=== PATIENT | female | born 2000 ===

== ENCOUNTER 2022-11-24 10:25 | Emergency (ER) | payer BC, OTHER ==
--- OUTSIDE RECORDS SUMMARY | 2022-11-24 10:30 | XMS REPORT | Continuity of Care Document ---
:2000 Author Organization [facility] t Address [address] [facility] [address] [place] [address] Care Team Providers Name Role Phone PCP, PATIENT DOES NOT HAVE A Primary Care Physician Unavaila SHANTI Nguyen Attending Clinician Unavailable Windy Jama MD Attending Clinician Unknown, Attending Attending Clinician Unavailable WINDY JAMA Attending Clinician Unavailable Provider, Ang [facility] Attending Clinician Unavailable AKHIL KITCHEN K.H. Attending Clinician Unavailable Akhil Kitchen MD K.H. Attending Clinician Doctor Unassigned, [place] Attending Clinician Unavailable Shanti Galeana MD Attending Clinician ERIS MONROE Attending Clinician Unavailable Only, Ang Mohinder Test Attending Clinician Unavailable Eris Monroe MD Attending Clinician Patricia Gonsalves MD Attending Clinician Sylvia Germain MD Attending Clinician Therapy, Adc Covid Infusion Attending Clinician Unavailable Toby Portillo MD Attending Clinician TAVON ALVAREZ Attending Clinician Unavailable Silvana Berg Attending Clinician SILVANA FITZGERALD Attending Clinician Unavailable Lab, Ang - Db Attending Clinician Unavailable SYLVIA GERMAIN Attending Clinician Unavailable PATRICIA GONSALVES Attending Clinician Unavailable ISIAH MONTEMAYOR Attending Clinician Unavailable VITOR PURCELL Attending Clinician Unavailable Payers Payer Name Policy Type Policy Number Effective Date Expiration Date S yolanda [employer] [place] [id number] 2021 00:00:00 [facility] [id number] 2018 CHOICE 00:00:00 Problems Condition Condition Condition Status Onset Resolution Last Treating Co mments Source Name Details Category Date Date Treatment Clinician Date Body mass Body mass Disease Active Uni vers index index 5-06 ity of (BMI) of (BMI) of 00:00: [place] 20 to 24 20 to 24 00 Medica l Branch Thyroiditi Thyroiditi Disease Active U nivers s s 5-06 ity of 00:00: Medical [place] Right axis Right axis Disease Active U nivers deviation deviation 8-17 ity of on EKG on EKG 00:00: [facility] Abnormal Abnormal Disease Active Unive rs uterine uterine 3-08 ity of bleeding bleeding 00:00: [place] [facility] Thyroid Thyroid Disease Active 2019-04 Univers antibody antibody 1-11 ity of positive positive 00:00: [place] [facility] Chronic Chronic Disease Active Univers sinusitis, sinusitis, 7-15 it y of [place]specif[place] Me dical Branch Positive Positive Disease Active Unive rs ANGEL ANGEL 3-18 ity of (antinucle [place]inucle [place] Medical antibody) antibody) Bran ch Gilbert's Gilbert's Disease Active Uni vers syndrome syndrome 3-08 ity of 00:00: [place] [facility] Allergies, Adverse Reactions, Alerts Allergy Allergy Status Severity Reaction(s) Onset Inactive Treating Comm ents Source Name Type Date Date Clinician NO KNOWN Drug Active Univers ALLERGIE Class ity of S [facility] Social History Social Habit Start Date Stop Date Quantity Comments Source Exposure to 2022-04-14 2022-04-24 Not sure University of SARS-CoV-2 00:00:00 14:32:00 [facility] (event) [place] Tobacco use and 2022-04-24 2022-04-24 Smokeless tobacco Un iversity of exposure 00:00:00 00:00:00 non-user [facility] Alcohol intake 2022-04-24 2022-04-24 Current University of 00:00:00 00:00:00 non-drinker of [facility] alcohol (finding) Branch Sex Assigned At [birth year] Universit y of 00:00:00 00:00:00 [facility] Smoking Status Start Date Stop Date Source Never smoked tobacco [facility] Medications Ordered Filled Start Stop Current Ordering Indication Dosage Frequency Signature Comments Components Source Medication Medication Date Date Medication? Clinician (SIG) Name Name loratadine 2021-04 Yes Univers (CLARITIN 2-27 ity of ORAL) 14:34: [address] loratadine 2021-04 Yes Univers (CLARITIN 2-27 ity of ORAL) 14:34: [address] maalox/diph 2021-04 Yes [id number] 5mL Take 5 mL Univers enhydrAMINE 2-27 by mouth 3 it y of :lidocaine2 00:00: (three) [place] % viscous 00 times Medical 1:1:1 Susp daily as Branc h suspension needed (gargle and spit). maalox/diph 2021-04 Yes [id number] 5mL Take 5 mL Univers enhydrAMINE 2-27 by mouth 3 it y of :lidocaine2 00:00: (three) [place] % viscous 00 times Medical 1:1:1 Susp daily as Branc h suspension needed (gargle and spit). QULIPTA 30 2021-04 Yes Univers mg Tab 2-09 ity of 00:00: [address] QULIPTA 30 2021-04 Yes Univers mg Tab 2-09 ity of 00:00: [address] loratadine Yes Univers (CLARITIN 7-25 ity of ORAL) 14:16: [address] loratadine Yes Univers (CLARITIN 7-25 ity of ORAL) 14:16: [address] norethindro Yes [id number] 1{tbl} Take 1 Univers ne-ethinyl 6-07 tablet by ity of estradiol 00:00: mouth [place] (HAMMAD 00 every Medical 05/18, ,) morning. Branc h 1-20 mg-mcg per tablet norethindro Yes [id number] 1{tbl} Take 1 Univers ne-ethinyl 6-07 tablet by ity of estradiol 00:00: mouth [place] (HAMMAD 00 every Medical ,) morning. Branc h 1-20 mg-mcg per tablet norethindro 2022-0 Yes [id number] 1{tbl} Take 1 Univers ne-ethinyl 6-07 tablet by ity of estradiol 00:00: mouth [place] (HAMMAD 00 every Medical ,) morning. Branc h 1-20 mg-mcg per tablet norethindro 2022-0 Yes [id number] 1{tbl} Take 1 Univers ne-ethinyl 6-07 tablet by ity of estradiol 00:00: mouth [place] (HAMMAD 00 every Medical ,) morning. Branc h 1-20 mg-mcg per tablet loratadine 2020-0 Yes [id number] 10mg Take 1 U nivers 10 mg 3-19 tablet by ity of tablet 00:00: mouth [place] 00 daily. Medical Branch fluticasone 2020-0 Yes [id number] 2{spray Use 2 Univers propionate 3-19 } Sprays in ity of 50 00:00: each [place] mcg/actuati 00 nostril Medic al on nasal daily. Branch spray loratadine 2020-0 Yes [id number] 10mg Take 1 U nivers 10 mg 3-19 tablet by ity of tablet 00:00: mouth [place] 00 daily. Medical Branch fluticasone 2020-0 Yes [id number] 2{spray Use 2 Univers propionate 3-19 } Sprays in ity of 50 00:00: each [place] mcg/actuati 00 nostril Medic al on nasal daily. Branch spray loratadine 2020-0 Yes [id number] 10mg Take 1 U nivers 10 mg 3-19 tablet by ity of tablet 00:00: mouth [place] 00 daily. Medical [place] fluticasone 2020-0 Yes [id number] 2{spray Use 2 Univers propionate 3-19 } Sprays in ity of 50 00:00: each [place] mcg/actuati 00 nostril Medic al on nasal daily. Branch spray loratadine 2020-0 Yes [id number] 10mg Take 1 U nivers 10 mg 3-19 tablet by ity of tablet 00:00: mouth [place] 00 daily. [facility] fluticasone 2020-0 Yes [id number] 2{spray Use 2 Univers propionate 3-19 } Sprays in ity of 50 00:00: each [facility]/actuati 00 nostril Medic al on nasal daily. Branch spray Immunizations Ordered Immunization Filled Immunization Date Status Commen ts Source Name Name Influenza Virus 2021-02-02 Completed Universit y of Vaccine 00:00:00 [facility] Influenza Virus 2021-02-02 Completed Universit y of Vaccine 00:00:00 [facility] Influenza Virus 2021-02-02 Completed Universit y of Vaccine 00:00:00 [facility] Influenza Virus 2021-02-02 Completed Universit y of Vaccine 00:00:00 [facility] Influenza Virus 2020-03-01 Completed Universit y of Vaccine Quad .5 mL IM 00:00:00 [place] Medical 6+ MO Branch Influenza Virus 2020-03-01 Completed Universit y of Vaccine Quad .5 mL IM 00:00:00 [place] Medical 6+ MO Branch Influenza Virus 2020-03-01 Completed Universit y of Vaccine [place] .5 mL IM 00:00:00 [place] Medical 6+ MO Branch Influenza Virus 2020-03-01 Completed Universit y of Vaccine [place] .5 mL IM 00:00:00 [place] Medical 6+ MO Branch Influenza Virus 2019-06-09 Completed Universit y of Vaccine [place] .5 mL IM 00:00:00 [place] Medical 6+ MO Branch Influenza Virus 2019-06-09 Completed Universit y of Vaccine 00:00:00 [facility] Influenza Virus 2019-06-09 Completed Universit y of Vaccine Quad .5 mL IM 00:00:00 [place] Medical 6+ MO Branch Influenza Virus 2019-06-09 Completed Universit y of Vaccine 00:00:00 [facility] Influenza Virus 2019-06-09 Completed Universit y of Vaccine Quad .5 mL IM 00:00:00 [place] Medical 6+ MO Branch Influenza Virus 2019-06-09 Completed Universit y of Vaccine 00:00:00 [facility] Influenza Virus 2019-06-09 Completed Universit y of Vaccine Quad .5 mL IM 00:00:00 [place] Medical 6+ MO Branch Influenza Virus 2019-06-09 Completed Universit y of Vaccine 00:00:00 [facility] HPV9 2018-06-30 Completed University of 00:00:00 [facility] HPV9 2018-06-30 Completed University of 00:00:00 [facility] HPV9 2018-06-30 Completed University of 00:00:00 [facility] HPV9 2018-06-30 Completed University of 00:00:00 [facility] TDAP 2018-03-24 Completed University of 00:00:00 [facility] TDAP 2018-03-24 Completed University of 00:00:00 [facility] TDAP 2018-03-24 Completed University of 00:00:00 [facility] TDAP 2018-03-24 Completed University of 00:00:00 [facility] Influenza Virus 2018-01-20 Completed Universit y of Vaccine 00:00:00 [facility] Influenza Virus 2018-01-20 Completed Universit y of Vaccine 00:00:00 [facility] Influenza Virus 2018-01-20 Completed Universit y of Vaccine 00:00:00 [facility] Influenza Virus 2018-01-20 Completed Universit y of Vaccine 00:00:00 [facility] Influenza Virus 2018-01-19 Completed Universit y of Vaccine 00:00:00 [facility] Influenza Virus 2018-01-19 Completed Universit y of Vaccine 00:00:00 [facility] Influenza Virus 2018-01-19 Completed Universit y of Vaccine 00:00:00 [facility] Influenza Virus 2018-01-19 Completed Universit y of Vaccine 00:00:00 [facility] Meningococcal 2015-11-25 Completed University of Polysaccharide 00:00:00 [place] Medi vanessa (groups A, C, Y and Branc h W-135) conjugate vaccine (MCV4P) Meningococcal 2015-11-25 Completed University of Polysaccharide 00:00:00 [place] Medi vanessa (groups A, C, Y and Branc h W-135) conjugate vaccine (MCV4P) Meningococcal 2015-11-25 Completed University of Polysaccharide 00:00:00 [place] Medi vanessa (groups A, C, Y and Branc h W-135) conjugate vaccine (MCV4P) Meningococcal 2015-11-25 Completed University of Polysaccharide 00:00:00 [place] Medi vanessa (groups A, C, Y and Branc h W-135) conjugate vaccine (MCV4P) Meningococcal 2011-12-18 Completed University of Polysaccharide 00:00:00 [place] Medi vanessa (groups A, C, Y and Branc h W-135) conjugate vaccine (MCV4P) TDAP 2011-12-18 Completed University of 00:00:00 [facility] Meningococcal 2011-12-18 Completed University of Polysaccharide 00:00:00 [place] Medi vanessa (groups A, C, Y and Branc h W-135) conjugate vaccine (MCV4P) TDAP 2011-12-18 Completed University of 00:00:00 [facility] Meningococcal 2011-12-18 Completed University of Polysaccharide 00:00:00 [place] Medi vanessa (groups A, C, Y and Branc h W-135) conjugate vaccine (MCV4P) TDAP 2011-12-18 Completed University of 00:00:00 [facility] Meningococcal 2011-12-18 Completed University of Polysaccharide 00:00:00 [facility] vanessa (groups A, C, Y and Branc h W-135) conjugate vaccine (MCV4P) TDAP 2011-12-18 Completed University of 00:00:00 [facility] HEPATITIS A 2008-05-13 Completed University of 00:00:00 [facility] HEPATITIS A 2008-05-13 Completed University of 00:00:00 [facility] HEPATITIS A 2008-05-13 Completed University of 00:00:00 [facility] HEPATITIS A 2008-05-13 Completed University of 00:00:00 [facility] HEPATITIS A 2007-02-19 Completed University of 00:00:00 [facility] Varicella 2007-02-19 Completed University of (varivax)(chicken 00:00:00 [place] M edical pox) Branch HEPATITIS A 2007-02-19 Completed University of 00:00:00 [facility] Varicella 2007-02-19 Completed University of (varivax)(chicken 00:00:00 [place] M edical pox) Branch HEPATITIS A 2007-02-19 Completed University of 00:00:00 [facility] Varicella 2007-02-19 Completed University of (varivax)(chicken 00:00:00 [place] M edical pox) Branch HEPATITIS A 2007-02-19 Completed University of 00:00:00 [facility] Varicella 2007-02-19 Completed University of (varivax)(chicken 00:00:00 [place] M edical pox) Branch DTAP 2003-01-19 Completed University of 00:00:00 [facility] MMR 2003-01-19 Completed University of 00:00:00 [facility] Polio (IPV/OPV) 2003-01-19 Completed Universit y of 00:00:00 [facility] DTAP 2003-01-19 Completed University of 00:00:00 [facility] MMR 2003-01-19 Completed University of 00:00:00 [place] [facility] Polio (IPV/OPV) 2003-01-19 Completed Universit y of 00:00:00 [place] [facility] DTAP 2003-01-19 Completed University of 00:00:00 [place] [facility] MMR 2003-01-19 Completed University of 00:00:00 [facility] Branch Polio (IPV/OPV) 2003-01-19 Completed Universit y of 00:00:00 [place] [facility] DTAP 2003-01-19 Completed University of 00:00:00 [place] [facility] MMR 2003-01-19 Completed University of 00:00:00 [facility] Branch Polio (IPV/OPV) 2003-01-19 Completed Universit y of 00:00:00 [facility] Vital Signs Vital Name Observation Time Observation Value Comments Source Systolic blood 2022-04-24 20:33:00 118 mm[Hg] Univer sity of pressure [facility] Diastolic blood 2022-04-24 20:33:00 85 mm[Hg] Unive rsity of [facility] Heart rate 2022-04-24 20:33:00 83 /min [facility] Body temperature 2022-04-24 20:33:00 36.56 [facility] Respiratory rate 2022-04-24 20:33:00 16 /min [facility] Body height 2022-04-24 20:33:00 165.1 cm [facility] Body weight 2022-04-24 20:33:00 50.349 kg [facility] BMI 2022-04-24 20:33:00 18.47 kg/m2 [facility] Oxygen saturation in 2022-04-24 20:33:00 100 /min [facility] Arterial blood by [facility] Pulse oximetry Branch Systolic blood 2021-11-20 19:22:00 128 mm[Hg] Univer sity of pressure [facility] Diastolic blood 2021-11-20 19:22:00 84 mm[Hg] Unive rsity of pressure [facility] Heart rate 2021-11-20 19:22:00 87 /min Universi ty [facility] Respiratory rate 2021-11-20 19:22:00 18 /min [facility] Body height 2021-11-20 19:22:00 165.1 cm [facility] Body weight 2021-11-20 19:22:00 51.256 kg [facility] BMI 2021-11-20 19:22:00 18.80 kg/m2 [facility] Oxygen saturation in 2021-11-20 19:22:00 100 /min [facility] Arterial blood by [facility] Pulse oximetry Branch Procedures Procedure Date / Time Performed Performing Clinician Sourc e POCT MOLECULAR STREP 2022-04-24 20:42:00 Unknown, Attending [facility] POCT MOLECULAR FLU 2022-04-24 20:37:00 Unknown, [facility] HB ECG ROUTINE & 2021-11-20 19:24:42 Akhil Kitchen [facility] Encounters Start End Encounter Admission Attending Care Care Encounter Source Date/Time Date/Time Type Type Clinicians Facility Department ID 2022-11-06 2022-11-06 Outpatient R LISSETT [facility] [id number] Univers 15:00:00 15:00:00 SHANTI [facility] 2022-04-24 2022-04-24 Urgent Windy Jama [facility] [id number] Univers 14:20:00 14:40:00 Care Unknown, Attending HEALTH [id number] [facility] [id number] [place] SIMÓN?BLEA [phone] [address] MEDICAL OFFICE BUILDING 2022-04-24 2022-04-24 Outpatient Rg JAMA [facility] [id number] Univers 14:20:00 14:20:00 WINDY [facility] 2022-04-24 2022-04-24 Letter Provider, [facility] [id number] Univers 00:00:00 00:00:00 (Out) Ang Mohinder HEALTH [id number] it y of Urgent Care [place] [id number] [place] SIMÓN?BLEA [phone] [address] MEDICAL OFFICE BUILDING 2022-02-23 2022-02-23 Outpatient R IMTIAZ [facility] [id number] Univers 10:00:00 10:00:00 SENDIL ity [facility] 2022-01-31 2022-01-31 Outpatient R IMTIAZ [facility] [id number] Univers 10:00:00 10:00:00 SENDIL ity [facility] 2021-11-28 2021-11-28 Outpatient R IMTIAZ [facility] [id number] Univers 13:00:00 13:00:00 SENDIL ity [facility] 2021-11-20 2021-11-20 Outpatient R IMTIAZ [facility] [id number] Univers 14:00:00 14:50:01 SENDIL ity [facility] 2021-11-20 2021-11-[address] [facility] [id number] Univers 14:00:00 14:50:01 Visit Sendil Valentin POLO [id number] ity [facility] [id number] [id number] Ak dical [facility]9 [facility] 2021-11-20 2021-11-20 [facility] [id number] Univers 14:00:00 14:50:01 SENDIL ity [facility] 2021-11-20 2021-11-20 Orders Doctor MANAV [id number] Univers 00:00:00 00:00:00 Only Unassigned, MAHAD [id number] ity of [place] [facility] [id number] [place] as [phone] [address] 2021-10-03 2021-10-03 Outpatient R LISSETT [facility] [id number] Univers 13:30:00 14:16:30 SHANTI ity [facility] 2021-10-03 2021-10-[address] [facility] [id number] Univers 13:30:00 14:16:30 Visit Shanti POL[place] [id number] ity [facility] [id number] [phone] [facility] 134 [facility] 2021-10-03 2021-10-03 Outpatient R ADUM, [facility] [id number] Univers 13:30:00 14:16:30 SHANTI mujica [facility] 2021-10-03 2021-10-03 Orders Doctor MANAV [id number] Univers 00:00:00 00:00:00 Only Unassigned, MAHAD [id number] ity of [facility] [id number] [place] as [phone] [address] 2021-09-22 2021-09-22 Refill Ad, [facility] [id number] Univers 00:00:00 00:00:00 Shanti POLO [id number] ity of [id number] [phone] [address] 2021-09-05 2021-09-05 Outpatient R LISSETT, [facility] [id number] Univers 15:00:00 15:00:00 SHANTI mujica [facility] 2021-05-05 2021-05-05 Outpatient R MABEL [facility] [id number] Univers 12:00:00 12:00:00 ERIS bette [facility] 2021-05-01 2021-05-01 Outpatient R ROSEMARY [facility] [id number] Univers 10:30:00 11:03:37 WINDY [facility] 2021-05-01 2021-05-01 Laboratory Only, Ang Db Test [facility] [id number] Univers 10:30:00 10:45:00 Only Windy Jama [facility] [id number] ity of [place] [id number] [place] as SIMÓN?BLEA [phone] [address] MEDICAL OFFICE BUILDING 2021-03-08 2021-03-08 Office Adum, [facility] [id number] Univers 16:05:16 17:24:57 Visit Shanti POLO [id number] ity of [facility] [id number] [phone] Ak dicarnold NAL 134 [facility] 2021-03-08 2021-03-08 [facility] [id number] Univers 16:00:00 17:24:57 SHANTI mujica [facility] 2021-02-17 2021-02-17 [facility] [id number] Univers 12:00:00 12:28:01 ERIS mujica [facility] 2021-02-17 2021-02-17 Office [facility] [id number] Univers 11:56:18 12:28:01 Visit Eris HEALTH [id number] it y of [place] [id number] [place] as ISMÓN?BLEA [phone] Ak chandrika [facility] [address] MEDICAL OFFICE [facility] 2021-02-17 2021-02-17 [facility] [id number] Univers 12:00:00 12:00:00 ERIS mujica [facility] 2021-02-14 2021-02-14 [facility] [id number] Univers 15:00:00 15:00:00 SHANTI bette [facility] 2021-02-14 2021-02-14 Rosendo Gonsalves Patricia [facility] [id number] Univers 00:00:00 00:00:00 Management Cam Dwain [id number] ity of [id number] Profess[place] [phone] Ak dicarnold nal 134 [facility] 2021-02-10 2021-02-10 [facility] [id number] Univers 13:00:00 13:00:00 ERIS bette [facility] 2021-02-10 2021-02-[address] [facility] [id number] Univers 00:00:00 00:00:00 Wondiful A Health [id number] ity of [place] [id number] [place] as Simón?Blea [phone] Me dicarnold orozco 0[address] [place] [facility] Office Building 2021-02-07 2021-02-07 Nurse Therapy, Adc Covid Infusion [facility] [id number] [id number] Univers 15:28:54 16:28:54 Visit Toby Portillo [id number] ity [id number] [phone] [place] 428803 [place] 2021-02-07 2021-02-07 Outpatient R [facility] [id number] Univers 16:00:00 16:00:00 ity of [facility] 2021-02-07 2021-02-07 Orders Doctor MANAV [id number] [id number] Univers 00:00:00 00:00:00 Only Unassigned, MAHAD [id number] ity of [place] [facility] [id number] [place] as [phone] [address] 2021-02-06 2021-02-06 [facility] [id number] Univers 11:00:00 11:00:00 TAVON ity [facility] 2021-02-06 2021-02-[address] [facility] [id number] Univers 00:00:00 00:00:00 Wondiful A Health [id number] ity of [place] [id number] [place] Simón?Blea [phone] Ak dicarnold orozco 044 [place] [facility] Office [facility] 2021-02-05 2021-02-[address] [facility] [id number] Univers 11:48:02 12:08:02 Care Silvana [facility] [id number] ity of [place] [id number] [place] Simón?Blea [phone] Ak dicarnold orozco 370 [place] [facility] Office [facility] 2021-02-05 2021-02-05 Outpatient R [facility] [id number] Univers 11:40:00 11:40:00 SILVANA bowlingy o f [facility] 2021-01-17 2021-01-17 Technology Lead Lab, Ang - Db [facility] [id number] Univers 08:02:44 08:17:44 Visit Sylvia [facility] 350.1.13.1 0 ity of [place] [id number] [place] Simón?Blea [phone] [facility] [address] [facility] Office [facility] 2021-01-17 2021-01-17 Outpatient [facility] [id number] Univers 08:00:00 08:00:00 WONDIFUL itbette o lilian [facility] 2021-01-16 2021-01-[address] [facility] 1.2.840.114 [id number] Univers 13:59:43 14:59:49 [facility] 350.1.13.10 ity of [place] 4.2.7.2.686 [place] Simón?Blea [phone] [facility] 044 [facility] 2021-01-16 2021-01-16 [facility] [id number] Univers 14:00:00 14:00:00 WONDIFUL itbette o lilian [facility] 2020-12-28 2020-12-[address] [facility] [address] [facility] [id number] Univers 13:31:23 23:59:00 Encounter Akhil Polo [id number] [id number] [phone] [facility] 843 [facility] 2020-12-28 2020-12-28 [facility] [id number] Univers 13:31:23 23:59:00 SENDIL itbette [facility] 2020-12-28 2020-12-[address] [facility] [id number] Univers 12:57:49 13:20:38 Visit Akhil Polo [id number] [id number] [phone] Ak dical nal 059 [facility] 2020-12-28 2020-12-28 Outpatient R IMTIAZ [facility] [id number] Univers 13:00:00 13:00:00 SENDIL ity [facility] 2020-12-19 2020-12-[address] [facility] [id number] Univers 00:00:00 00:00:00 Wondiful [facility] [id number] ity of [place] [id number] [place] Simón?Blea [phone] [facility] 044 [facility] Office [facility] 2020-12-16 2020-12-[address] [facility] [id number] Univers 00:00:00 00:00:00 Wondiful [facility] [id number] ity of [place] [id number] [place] Simón?Blea [phone] [address] Office [facility] 2020-12-14 2020-12-14 Orders Doctor MANAV [id number] Univers 00:00:00 00:00:00 Only Unassigned, MAHAD [id number] ity of [place] [facility] [id number] [place] [phone] [address] 2020-12-06 2020-12-06 Outpatient R BRADY [facility] [id number] Univers 15:30:00 15:30:00 WONDIFUL ity o f [facility] 2020-11-03 2020-11-03 Outpatient R PATRICIA GONSALVES [facility] [id number] Univers 15:00:00 15:00:00 ity of [facility] 2020-11-02 2020-11-02 Outpatient PATRICIA FLEMING [facility] [id number] Univers 15:00:00 15:00:00 ity [facility] 2020-07-04 2020-07-04 Outpatient R ALBINA [facility] [id number] Univers 14:15:00 14:15:00 ISIAH ity [facility] 2020-03-01 2020-03-01 Outpatient Rg GERMAIN [facility] [id number] Univers 13:00:00 13:00:00 WONDIFUL ity o f [facility] 2019-11-16 2019-11-16 Outpatient Rg PURCELL [facility] [id number] Univers 09:00:00 09:00:00 VITOR mujica [facility] 2019-07-16 2019-07-16 Outpatient Rg GERMAIN [facility] [id number] Univers 14:15:00 14:15:00 WONDIFUL ity o f [facility] 2019-07-08 2019-07-08 Outpatient Rg GERMAIN [facility] [id number] Univers 08:40:00 08:40:00 [facility] Results Test Description Test Time Test Comments Results Result Comments Source POCT MOLECULAR STREP 2022-04-24 20:49:49 Test Item Value Reference Range Interpretation Comme nts POCT Molecular Strep (test code = 64408-7) Negative Negative Lab Interpretation (test code = 82423-3) [facility] [id number] 20:49:08 Test Item Value Reference Range Interpretation Comments POCT Molecular FluA (test code = Negative Negative 72392-0) POCT Molecular FluB (test code = Negative Negative 52329-9) Lab Interpretation (test code = Normal 54071-1) [facility]
[2022-11-24] MEDS ORDERED: Ringers Lactate 1,000 ML IV ONE (11:09)
[2022-11-24 11:25] LABS: Absolute Lymphocytes (CBC) 1.9 K/uL (0.7-4.9); Hematocrit 41.5 % (36.0-45.0); Lymphocytes % 33.7 % (15.3-44.8); MCV 84.9 fL (80-100); MPV 8.8 fL (7.6-11.3); RBC Red Blood Cell Count 4.89 M/uL (3.86-4.86)
[2022-11-24 11:25] LABS: Specific Gravity < 1.005 (1.005-1.030); Urine Bilirubin NEGATIVE (Negative); Urine Blood Negative (Negative); Urine Clarity Clear (Clear); Urine Color Colorless (Yellow); Urine Glucose NEGATIVE (Negative); Urine Protein NEGATIVE (Negative); Urine Urobilinogen Normal (Normal); Urine pH 5.5 (5.0-7.0)
[2022-11-24 11:46] LABS: Albumin 4.5 g/dL (3.4-5.0); Potassium 3.5 mEq/L (3.5-5.1); Protein, Total 8.4 g/dL (6.4-8.2)
[2022-11-24 11:47] LABS: Specific Gravity > 1.005 (1.005-1.030)
--- NOTE | 2022-11-24 12:07 | ER ---
Nurse's Notes [facility] Name: Carolina Moody Age: 22 yrs Sex: Female : 2000 Arrival Date: 11/24/2022 Time: 10:25 Bed 16 Private MD: Diagnosis: Dysuria Presentation: 11/24 10:40 Chief complaint: Patient states: Diagnosed with UTI 11/20. On the last day of ll1 antibiotics and still has pain/symptoms. Coronavirus screen: Vaccine status: Patient reports being unvaccinated. Client denies travel out of the [place] in the last 14 days. At this time, the client does not indicate any symptoms associated with coronavirus-19. Ebola Screen: Patient denies travel to an Ebola-affected area in the 21 days before illness onset. Initial Sepsis Screen: Does the patient meet any 2 criteria? No. Patient's initial sepsis screen is negative. Does the patient have a suspected source of infection? Yes: Dysuria/Frequency/Urgency/UTI. Risk Assessment: Do you want to hurt yourself or someone else? Patient reports no desire to harm self or others. Onset of symptoms was November 18, 2022. 10:40 Method Of Arrival: Ambulatory ll1 10:40 Acuity: WALTER 4 ll1 Triage Assessment: 10:41 General: Appears uncomfortable, Behavior is calm, cooperative, appropriate for age. ll1 Pain: Complains of pain in pelvis Pain currently is 4 out of 10 on a pain scale. : Reports burning with urination, pain in suprapubic area pelvic urinary frequency. Historical: - Allergies: 10:40 No Known Allergies; ll1 - PMHx: 10:40 hashimotos; ll1 - PSHx: 10:40 sinus SX; ll1 - Immunization history:: Client reports having NOT received the Covid vaccine. - Social history:: Smoking status: Patient denies any tobacco usage or history of. Screenin:13 [facility] ED Fall Risk Assessment (Adult) History of falling in the last 3 months, nj1 including since admission No falls in past 3 months (0 pts) Confusion or Disorientation No (0 pts) Intoxicated or Sedated No (0 pts) Impaired Gait No (0 pts) Mobility Assist Device Used No (0 pt) Altered Elimination No (0 pt) Score/Fall Risk Level 0 - 2 = Low Risk Oriented to surroundings, Maintained a safe environment, Hourly rounding (assess needs \T\ fall precautionary measures) done. Abuse screen: Denies threats or abuse. Denies injuries from another. Nutritional screening: No deficits noted. Tuberculosis screening: No symptoms or risk factors identified. Assessment: 10:43 Reassessment: See triage assessment. nj1 11:58 Reassessment: Patient appears in no apparent distress at this time. Patient and/or nj1 family updated on plan of care and expected duration. Pain level reassessed. Patient is alert, oriented x 3, equal unlabored respirations, skin warm/dry/pink. Patient denies pain at this time. 12:25 Reassessment: Patient appears in no apparent distress at this time. Patient and/or nj1 family updated on plan of care and expected duration. Pain level reassessed. Patient is alert, oriented x 3, equal unlabored respirations, skin warm/dry/pink. Patient denies pain at this time. Vital Signs: 10:40 BP 131 / 85; Pulse 88; Resp 16; Temp 98; Pulse Ox 100% ; Weight 47.63 kg; Height 5 ft. ll1 5 in. ; Pain 4/10; 11:56 BP 111 / 71; Pulse 75; Resp 17; Pulse Ox 100% ; nj1 10:40 Body Mass Index 17.47 (47.63 kg, 165.1 cm) ll1 10:40 Pain Scale: Adult ll1 ED Course: 10:28 Patient arrived in ED. ts1 10:33 Arm band placed on Patient placed in an exam room, on a stretcher. ll1 10:35 Darnell Caldwell DO is Attending Physician. ms3 10:41 Triage completed. ll1 10:42 Vale Garcia, RON is Primary Nurse. nj1 11:05 Inserted saline lock: 22 gauge in left antecubital area, using aseptic technique. Blood nj1 collected. 11:13 Provided Education on: fall precautions. nj1 11:13 Patient has correct armband on for positive identification. Bed in low position. Call nj1 light in reach. Adult w/ patient. 12:26 No provider procedures requiring assistance completed. IV discontinued, intact, nj1 bleeding controlled. Administered Medications: 11:08 Drug: Lactated Ringers Solution IV 1000 ml Route: IV; Rate: bolus; Site: left nj1 antecubital; 11:59 Follow up: Response: No adverse reaction; IV Status: Completed infusion; IV Intake: nj1 1000ml Medication: 12:26 VIS not applicable for this client. nj1 Intake: 11:59 IV: 1000ml; Total: 1000ml. nj1 Outcome: 12:07 Discharge ordered by . ms3 12:26 Discharged to home ambulatory, with family. nj1 12:26 Condition: stable 12:26 Discharge instructions given to patient, Instructed on discharge instructions, follow up and referral plans. Demonstrated understanding of instructions, follow-up care. 12:27 Patient left the ED. nj1 Signatures: Rufina Avina RN RN ll1 Darnell Caldwell DO DO ms3 Vale Garcia RN RN nj1 Angelica Cardenas, CAMACHO PAS ts1
--- NOTE | 2022-11-24 12:07 | EDPHYS ---
Physician Documentation [facility] Name: Carolina Moody Age: 22 yrs Sex: Female : 2000 Arrival Date: 11/24/2022 Time: 10:25 Bed 16 Private MD: ED Physician Darnell Caldwell HPI: 11/24 12:07 This 22 yrs old Female presents to ER via Ambulatory with complaints of Pelvic Pain. ms3 12:07 22-year-old female with past medical history of Hafsa's presents for dysuria that ms3 began on November 20. At that time patient was seen at Urgent care diagnosed with urinary tract infection and started on Macrobid. Patient states she was instructed to return for nausea or fever. Patient states she is currently on her last day of Macrobid and not feeling improved and was told to come to the emergency department. Patient states she is currently having dysuria and mild back pain. Patient notes her last menstrual period to be September 27, 2022.. Historical: - Allergies: 10:40 No Known Allergies; ll1 - PMHx: 10:40 hashimotos; ll1 - PSHx: 10:40 sinus SX; ll1 - Immunization history:: Client reports having NOT received the Covid vaccine. - Social history:: Smoking status: Patient denies any tobacco usage or history of. ROS: 12:07 Positive for burning with urination. ms3 12:07 Constitutional: Negative for fever, and chills. 12:07 Cardiovascular: Negative for chest pain, and palpitations. Respiratory: Negative for shortness of breath, cough, wheezing, and pleuritic chest pain, Abdomen/GI: Negative for abdominal pain, nausea, vomiting, diarrhea, and constipation, MS/Extremity: Negative for injury and deformity, Skin: Negative for injury, rash, and discoloration. 12:07 All other systems are negative. Exam: 12:07 Constitutional: This is a well developed, well nourished patient who is awake, alert, ms3 and in no acute distress. Head/Face: Normocephalic, atraumatic. Neck: Trachea midline, no cervical lymphadenopathy. Supple, full range of motion without nuchal rigidity, or vertebral point tenderness. No Meningismus. Chest/axilla: Normal chest wall appearance and motion. Nontender with no deformity. Cardiovascular: Regular rate and rhythm with a normal S1 and S2. No gallops, murmurs, or rubs. Normal PMI, no JVD. No pulse deficits. Respiratory: Lungs have equal breath sounds bilaterally, clear to auscultation and percussion. No rales, rhonchi or wheezes noted. No increased work of breathing, no retractions or nasal flaring. Abdomen/GI: Soft, non-tender, with normal bowel sounds. No distension or tympany. No guarding or rebound. No evidence of tenderness throughout. Back: No spinal tenderness. No costovertebral tenderness. Full range of motion. Skin: Warm, dry with normal turgor. Normal color with no rashes, no lesions, and no evidence of cellulitis. MS/ Extremity: Pulses equal, no cyanosis. Neurovascular intact. Full, normal range of motion. Vital Signs: 10:40 BP 131 / 85; Pulse 88; Resp 16; Temp 98; Pulse Ox 100% ; Weight 47.63 kg; Height 5 ft. ll1 5 in. ; Pain 4/10; 11:56 BP 111 / 71; Pulse 75; Resp 17; Pulse Ox 100% ; nj1 10:40 Body Mass Index 17.47 (47.63 kg, 165.1 cm) ll1 10:40 Pain Scale: Adult ll1 MDM: 10:48 Patient medically screened. ms3 12:07 Differential diagnosis: urinary tract infection, Pyelonephritis. ms3 12:09 Data reviewed: vital signs, nurses notes, and as a result, I will discharge patient. I ms3 considered the following discharge prescriptions or medication management in the emergency department Medications were administered in the Emergency Department. See MAR. Counseling: I had a detailed discussion with the patient and/or guardian regarding: the historical points, exam findings, and any diagnostic results supporting the discharge/admit diagnosis, lab results, the need for outpatient follow up, to return to the emergency department if symptoms worsen or persist or if there are any questions or concerns that arise at home. Response to treatment: the patient's symptoms have markedly improved after treatment, and as a result, I will discharge patient. Special discussion: I discussed with the patient/guardian in detail that at this point there is no indication for admission to the hospital. It is understood, however, that if the symptoms persist or worsen the patient needs to return immediately for re-evaluation. 07/29 10:48 Order name: CBC with Diff; Complete Time: 11:50 ms3 11/24 10:48 Order name: CMP; Complete Time: 11:50 ms3 11/24 10:48 Order name: Urinalysis w/ reflexes; Complete Time: 11:50 ms3 11/24 10:48 Order name: Test, Urine; Complete Time: 11:50 ms3 Administered Medications: 11:08 Drug: Lactated Ringers Solution IV 1000 ml Route: IV; Rate: bolus; Site: left nj1 antecubital; 11:59 Follow up: Response: No adverse reaction; IV Status: Completed infusion; IV Intake: nj1 1000ml Disposition Summary: 11/24/22 12:07 Discharge Ordered Location: Home ms3 Condition: Stable ms3 Diagnosis - Dysuria ms3 Followup: ms3 - With: Private Physician - When: 2 - 3 days - Reason: Recheck today's complaints Discharge Instructions: - Discharge Summary Sheet ms3 - Dysuria ms3 Forms: - Medication Reconciliation Form ms3 - Thank You Letter ms3 - Antibiotic Education ms3 - Prescription Opioid Use ms3 - Patient Portal Instructions ms3 Signatures: Dispatcher [employer] Rufina Bennett RN RN ll1 Darnell Caldwell DO DO ms3 Vale Garcia RN RN nj1
[2022-11-24 12:31] VITALS: TEMP 98; O2SAT 100
[2022-11-24 12:33] VITALS: BP 111/71
== END 2022-11-24 12:27 | disposition home or self-care (01) ==
LOC: ER 10:25
DX: R30.0 Dysuria (principal)
CPT/HCPCS: 85025; 36415; 81025; 81003; 80053; 96360; 99284; J7120